=== PATIENT | female | born 1985 | race Caucasian/White ===

== ENCOUNTER 2017-04-22 18:41 | Emergency (ER) | payer SELFPAY ==
[~2017-04-22] VITALS: Ht 154.9 cm; Wt 49.0 kg
[2017-04-22 18:49] VITALS: TEMP 36.7; Ht 154.9 cm; Wt 49.0 kg
--- NOTE | 2017-04-22 19:38 | DIAGNOSTIC IMAGING REPORT ---
LEFT KNEE 3 VIEWS CLINICAL HISTORY: L knee pain s/p fall COMPARISON: Left femur radiographs December 29, 2014. FINDINGS: Alignment of left knee is anatomic. There is no fracture or joint effusion. The joint spaces are preserved. No osseous lesion is evident. IMPRESSION: No acute fracture or joint effusion of the left knee. Electronically signed by: Dieter Mead M.D. 04/22/2017 7:37 PM Dictated Date/Time: 04/22/2017 7:36 PM
[2017-04-22 20:38] VITALS: BP 120/64; PULSE 72; O2SAT 94
--- NOTE | 2017-04-22 23:42 | EMERGENCY ROOM VISIT NOTE ---
History First contact with patient: 19:07 Chief Complaint: KNEEPAIN Stated Complaint: L KNEE PAIN History of Present Illness The patient is a 32 year old female who presents to the Emergency Room with complaints of persistent left knee pain. The patient reports that she tripped on a rug in her house and fell approximately 2 weeks ago. She landed directly on the front of her knee. She reports persistent swelling. She denies any instability, clicking or locking with ambulation. Her pain is worse when she goes up and down stairs. She denies any prior history of left knee injuries. She does not have insurance or a family doctor, and presents to the emergency department for further evaluation. She rates her discomfort a 7 out of 10 with ambulation. Review of Systems 10 system review was performed and was negative except for pertinent positives and negatives as indicated in history of present illness Past Medical/Surgical History Medical Problems: (1) Asthma, Unspecified (2) Bee sting (3) Contusion of right hand (4) Dysfunction of both Eustachian tubes (5) Left otitis media (6) Lumbago (7) No Known Active Medical Problems (8) Pain, dental (9) Right ankle sprain (10) Right knee sprain (11) Strain of right quadriceps muscle, fascia and tendon, init (12) Tobacco Use Disorder Surgical Problems: (1) History of delivery Family History No significant family history Social History Smoking Status: Current Every Day Smoker Alcohol Use: none Marital Status: single Occupation Status: employed Current/Historical Medications No Active Prescriptions or Reported Meds Allergies Coded Allergies: Diphenhydramine (Verified Allergy, Unknown, Nausea, 02/06/16) Physical Exam Vital Signs Date Time Temp Pulse Resp B/P (MAP) Pulse Ox O2 Delivery O2 Flow Rate FiO2 04/22/17 20:38 72 16 120/64 94 04/22/17 18:49 36.7 68 18 120/71 98 Room Air Physical Exam CONSTITUTIONAL: Healthy and well nourished. Alert and oriented X 3 with positive affect. Patient does not appear in any acute distress. HEENT: Normocephalic, atraumatic. Pupils equal, round and reactive. NECK: Full active range of motion without discomfort. MUSCULOSKELETAL: Examination of the left knee shows evidence for an anterior knee wound that has healed well. There is no erythema, fluctuance or induration. She does have some bulging around the inferior patellar region. She also has tenderness to palpation through the pes anserine region. Collateral ligaments are intact. She exhibits full active range of motion without any obvious discomfort. Negative anterior draw, negative posterior drawer, negative pivot shift. No popliteal masses. No tenderness to palpation of the proximal fibula. Pedal pulses are intact. INTEGUMENTARY: No rash or other significant dermatologic conditions noted. NEUROLOGIC: Left lower extremity is sensory intact. Medical Decision & Procedures ER Provider Diagnostic Interpretation: My interpretation of left knee x-rays does not show any acute fractures, dislocation or joint effusion. Radiologist report is as follows: LEFT KNEE 3 VIEWS CLINICAL HISTORY: L knee pain s/p fall COMPARISON: Left femur radiographs December 29, 2014. FINDINGS: Alignment of left knee is anatomic. There is no fracture or joint effusion. The joint spaces are preserved. No osseous lesion is evident. IMPRESSION: No acute fracture or joint effusion of the left knee. ED Course Patient history and physical exam were performed. Nurse's notes were reviewed. Vital signs were reviewed and normal. X-rays of the left knee were normal. Upon further questioning, the patient reports that she does have crutches at home. She was encouraged to use the crutches as needed for both pain control and ambulatory assistance. She was encouraged to intermittently apply ice to the knee. Ibuprofen and Tylenol as needed for pain. The patient was already provided contact information for [facility]. If she is not qualified for care, she was instructed to follow-up with other orthopedics for further reevaluation and management. The patient voiced understanding of all discharge instructions, was happy with plan of care, refused any analgesics while in the emergency department, and rated her pain a 3 out of 10 at the time of discharge. Medical Decision Impression Primary Impression: Contusion of left knee Additional Impressions: Left knee tendonitis Fall from slip, trip, or stumble Departure Information Prescriptions No Active Prescriptions or Reported Meds Referrals No Doctor, Assigned (PCP) Patient Instructions [facility] Problem Qualifiers Primary Impression: Contusion of left knee Encounter type: initial encounter Qualified Codes: S80.02XA - Contusion of left knee, initial encounter Additional Impressions: Fall from slip, trip, or stumble Encounter type: initial encounter Qualified Codes: W01.0XXA - Fall on same level from slipping, tripping and stumbling without subsequent striking against object, initial encounter
== END 2017-04-22 20:40 | disposition home or self-care (01) ==
LOC: C.EDB 18:42 → C.EDD 20:40
DX: S80.02XA Contusion of left knee, initial encounter (principal); W01.0XXA Fall on same level from slipping, tripping and stumbling without subsequent striking against object, initial encounter; Y92.019 Unspecified place in single-family (private) house as the place of occurrence of the external cause; J45.909 Unspecified asthma, uncomplicated; F17.210 Nicotine dependence, cigarettes, uncomplicated

== ENCOUNTER 2017-05-24 17:45 | Emergency (ER) | payer SELFPAY ==
[~2017-05-24] VITALS: Ht 152.4 cm; Wt 47.6 kg
[2017-05-24 17:51] VITALS: TEMP 36.7; Ht 152.4 cm; Wt 47.6 kg
[2017-05-24] MEDS ORDERED: AMOX500C3 PO (18:09)
[2017-05-24] MEDS ORDERED: AMOXICILLIN 250 MG CAP PO ONE (18:15)
[2017-05-24 18:39] VITALS: BP 111/80; PULSE 69; O2SAT 100
--- NOTE | 2017-05-24 20:03 | EMERGENCY ROOM VISIT NOTE ---
ED Visit Note First contact with patient: 17:56 CHIEF COMPLAINT: Earache HISTORY OF PRESENT ILLNESS: This 32-year-old female presents to the emergency department and states they have had an earache worsening for the past 2 days. The patient has not had a sore throat or recent URI. There is no cough and no hoarseness. They rate the pain as sharp and 6/10. The pain is in the right ear. They have had nothing for the pain. REVIEW OF SYSTEMS: A 6 system review of systems was completed with positives and pertinent negatives listed in the HPI. ALLERGIES: Benadryl MEDICATIONS: See EMR PMH: See EMR. Immunizations are up to date. SH: Lives with family PHYSICAL EXAM: Vital Signs: Reviewed Nurse's notes GENERAL: White female, in no acute distress, well-developed, well-nourished. SKIN: Normal. HEART: Regular rate and rhythm without murmurs gallops or rubs. LUNGS: Clear to auscultation and breath sounds equal, no wheezes, rales, or rhonchi. MOUTH: The pharynx is not inflamed and the tonsils are not enlarged. The airway is patent. EARS: The right tympanic membrane is erythematous, inflamed and bulging. The right external auditory canal is clear with no tragus tenderness. The left tympanic membrane is pearly rodriguez without erythema or effusion. The left external auditory canal is clear. LYMPH: There is no lymphadenopathy. ED COURSE: I examined the patient. She appears to have a right otitis media. She will be started on amoxicillin here in the department and given a continuation prescription of the medication. She is to use [id number] analgesics and follow up with her primary care physician with any ongoing or persistent symptoms. Problem List Medical Problems: (1) Bee sting Status: Resolved (2) Contusion of right hand Status: Resolved (3) Dysfunction of both Eustachian tubes Status: Resolved (4) Left otitis media Status: Resolved (5) Pain, dental Status: Resolved (6) Right ankle sprain Status: Resolved (7) Right knee sprain Status: Resolved (8) Strain of right quadriceps muscle, fascia and tendon, init Status: Resolved Surgical Problems: (1) History of delivery Status: Resolved Current/Historical Medications Scheduled Amoxicillin (Amoxil), 500 MG PO TID Allergies Coded Allergies: Diphenhydramine (Verified Allergy, Unknown, Nausea, 7/9/17) Vital Signs Date Time Temp Pulse Resp B/P (MAP) Pulse Ox O2 Delivery O2 Flow Rate FiO2 05/24/17 18:39 69 18 111/80 100 Room Air 05/24/17 17:51 36.7 76 18 112/77 99 Room Air Medications Administered Medications (Trade) Dose Ordered Sig/Hieu Route Start Time Stop Time Status Last Admin Dose Admin Amoxicillin (Amoxil Cap) 500 mg NOW ONCE PO 05/24/17 18:15 05/24/17 18:16 DC 05/24/17 18:38 500 MG Departure Information Impression Primary Impression: Otitis media Dispostion Home / Self-Care Condition GOOD Prescriptions Amoxicillin (AMOXIL) 500 Mg Cap 500 MG PO TID for 10 Days, #30 CAP Prov: Harvey Durant PA-C 05/24/17 Forms HOME CARE DOCUMENTATION FORM, IMPORTANT VISIT INFORMATION Patient Instructions My [facility] Additional Instructions You were seen and evaluated today on an emergency basis only. This is not a substitute for, or an effort to provide, complete comprehensive medical care. It is not possible to recognize and treat all injuries or illnesses in a single emergency department visit. For this reason it is recommended that you followup with your primary care physician with any ongoing or persistent symptoms. Take amoxicillin 500 mg 3 times daily for the next 10 days For baseline pain relief you may alternate ibuprofen and acetaminophen every 4 hours for pain control. Take 600 mg ibuprofen (Advil) and then 4 hours later take 1000 mg acetaminophen (Tylenol). Do not take more than 3000 mg acetaminophen in a single day. You are welcome to return to the emergency department anytime with new, worsening, or concerning symptoms.
== END 2017-05-24 18:53 | disposition home or self-care (01) ==
LOC: C.EDB 17:46 → C.EDD 18:53
DX: H66.91 Otitis media, unspecified, right ear (principal)

== ENCOUNTER 2018-03-27 18:29 | Emergency (ER) | payer SELFPAY ==
[2018-03-27 18:31] VITALS: TEMP 36.9
[2018-03-27] MEDS ORDERED: DIAZEPAM 5MG TAB PO STA (18:42)
[2018-03-27] MEDS ORDERED: KETOROLAC TROMETHAMINE 60 MG/2 ML VIAL IM STA (18:42)
--- NOTE | 2018-03-27 18:52 | EMERGENCY ROOM VISIT NOTE ---
ED Visit Note First contact with patient: 18:34 CHIEF COMPLAINT: Shoulder pain HISTORY OF PRESENT ILLNESS: This 33-year-old female patient presents to the emergency department complaining of pain in the right shoulder that started yesterday. Patient states that she feels that she hurt her shoulder yesterday afternoon while pulling back on a lawnmower to started, she felt a twinge in the back of her shoulder and this has gotten progressively worse. She states that the pain is in her shoulder blade on the top of her shoulder and radiates down the arm as well as under her arm in the armpit.. There is limitation of motion of the arm because of the pain. The pain is moderate, constant and increases with motion of the hand and arm. The patient states the pain is aching and throbbing and 8/10. The patient has taken Tylenol with no relief of the pain, last dose of this was this morning. She has not really tried ice or heat. No previous significant previous shoulder disease or injury. No numbness or tingling. She denies any neck or back pain. No chest pain or shortness of breath. No abdominal pain or nausea/vomiting. No cough. REVIEW OF SYSTEMS: A 6 system review of systems was performed with positives and pertinent negatives in the HPI. ALLERGIES: Reviewed in chart, see below MEDICATIONS: No prescribed medications PMH: Reviewed in chart, see problem list below SOCIAL HISTORY: Lives at home. She is a current everyday smoker. PHYSICAL EXAM: Vital Signs: Reviewed nurse's notes, vital signs stable. GENERAL : Pleasant and cooperative, in no acute distress, but appears to be in pain, well-developed, well-nourished. MUSCULOSKELETAL: There is no deformity in the contour of the right shoulder and there are no elizabeth deformities noted. There is no sulcus sign. There is tenderness to palpation over the musculature of the shoulder including the trapezius and deltoid, around the shoulder blade area and chest wall under the axilla. There is no bony tenderness. There is no ecchymosis, abrasions, swelling, or crepitus palpable. The patient's range of motion is limited due to pain. There is no clavicle tenderness. No tenderness of the humerus, elbow, wrist, or hand. Stewardesses Teacher strength 5/5. Radial pulse 2+. NECK : No tenderness to palpation over the cervical spine. No paraspinous muscle tenderness. BACK: No midline tenderness of the thoracic or lumbar spine. HEART : Regular rate and rhythm without murmurs gallops or rubs. LUNGS: Clear to auscultation bilaterally without wheezes, rales or rhonchi. No accessory muscle use. No retractions. NEURO: The patient is alert and oriented to person, place, and time. Normal sensation to light and sharp touch. Capillary refill less than 2 seconds. EMERGENCY DEPARTMENT COURSE: I examined the patient. Given the mechanism of injury patient's exam, I feel x-rays of the shoulder would be very low yield at this time. Patient's symptoms and exam findings most consistent with musculoskeletal pain. Patient was given IM Toradol and PO Valium, she reports good improvement in her pain and spasms on reassessment. Rx for Valium was sent to the patient's pharmacy, the patient was instructed to continue NSAIDs for management of her pain. Patient was also educated regarding supportive care at home, follow-up, and return precautions, she verbalized understanding. Patient was discharged home with family member in stable condition and ambulatory. Problem List Medical Problems: (1) Bee sting Status: Resolved (2) Contusion of right hand Status: Resolved (3) Dysfunction of both Eustachian tubes Status: Resolved (4) Left otitis media Status: Resolved (5) Pain, dental Status: Resolved (6) Right ankle sprain Status: Resolved (7) Right knee sprain Status: Resolved (8) Strain of right quadriceps muscle, fascia and tendon, init Status: Resolved Surgical Problems: (1) History of delivery Status: Resolved Current/Historical Medications Scheduled Acetaminophen (Tylenol), 1,000 MG PO PRN UD Diazepam (Valium), 5 MG PO TID Scheduled PRN Ibuprofen (Advil), 400 MG PO Q6 PRN for Headache or Pain Allergies Coded Allergies: Diphenhydramine (Verified Allergy, Unknown, Nausea, 05/24/17) Vital Signs Date Time Temp Pulse Resp B/P (MAP) Pulse Ox O2 Delivery O2 Flow Rate FiO2 03/27/18 19:54 82 20 124/89 98 03/27/18 18:31 36.9 82 20 124/89 98 Room Air Medications Administered Medications (Trade) Dose Ordered Sig/Hieu Route Start Time Stop Time Status Last Admin Dose Admin Ketorolac Tromethamine (Toradol Inj) 60 mg NOW STAT IM 03/27/18 18:42 03/27/18 18:44 DC 03/27/18 18:50 60 MG Diazepam (Valium Tab) 5 mg NOW STAT PO 03/27/18 18:42 03/27/18 18:44 DC 03/27/18 18:42 5 MG Departure Information Impression Primary Impression: Musculoskeletal pain of right upper extremity Additional Impression: Musculoskeletal back pain Dispostion Home / Self-Care Condition GOOD Prescriptions Diazepam (Valium) 5 Mg Tab 5 MG PO TID for 4 Days, #12 TAB Prov: Antonina Perez, [employer] 03/27/18 Referrals No Doctor, Assigned (PCP) Patient Instructions ED Muscle Aching, ED Spasm Muscle, My [facility] Additional Instructions DISCHARGE INSTRUCTIONS & TREATMENT: You have been evaluated and treated in the emergency department today for your right shoulder and back pain. You most likely have strain and spasms of the muscles in her shoulder and upper back. You were given medication today to treat your symptoms that can make you drowsy and impair your ability to drive. DO NOT drive for the next 6 hours. Take it easy for the next few days, no strenuous activity, heavy lifting, or bending/twisting motions, to allow your back and shoulder to rest. Alternate heat and ice for comfort. After heat, you may do gentle stretching and massage to the low back. You may take ibuprofen 600mg every 6 hours for the pain. Do not take more than 2400mg in 24 hours. Valium muscle relaxer as prescribed, as needed for muscle tightness and spasms. This may make you drowsy. Do not drive or drink alcohol while taking. Follow up with your PCP in the next few days for further management. You may benefit from physical therapy. Please return to the ER if any problems with bowel or bladder function, numbness in your groin, high fevers, severe worsening pain, difficulty breathing or inability to catch your breath, or if loss of feeling/movement of legs. Work Instructions Return To Work: 2 days Problem Qualifiers
[2018-03-27] MEDS ORDERED: ACET-1256 PO (19:23)
[2018-03-27] MEDS ORDERED: IBUP-1050 PO (19:23)
[2018-03-27] MEDS ORDERED: DIAZ-165 PO (19:45)
[2018-03-27 19:54] VITALS: BP 124/89; PULSE 82; O2SAT 98
== END 2018-03-27 19:56 | disposition home or self-care (01) ==
LOC: C.EDB 18:30 → C.EDD 19:56
DX: M25.511 Pain in right shoulder (principal); M54.9 Dorsalgia, unspecified; F17.200 Nicotine dependence, unspecified, uncomplicated; Z79.899 Other long term (current) drug therapy; Z88.8 Allergy status to other drugs, medicaments and biological substances